=== PATIENT | female | born 1965 | race Caucasian/White ===

== ENCOUNTER → 2022-12-29 | Outpatient (CLI) | payer BC | END | disposition home or self-care (01) | LOC: LAB 14:45 → LAB SHORT 14:45 | DX: R30.0 Dysuria (principal) | CPT/HCPCS: 87077; 87086; 87186 ==

== ENCOUNTER 2023-12-17 06:27 | Day surgery (SDC) | payer BC ==
[~2023-12-17] VITALS: Ht 167 cm; Wt 83.5 kg
[2023-12-17] VITALS (9 sets, daily range): BP systolic 105–128; BP diastolic 60–72
[~2023-12-17 06:27] MED LIST: HYDCHL25 PO; LEVSOD100 PO; TIZA4 PO; ZOCOR20 MG PO
[2023-12-17] MEDS ORDERED: CeFAZolin Sodium 2,000 MG in NS 100 ML IV SCH (06:30)
[2023-12-17] MEDS ORDERED: Lactated Ringer's 1,000 ML IV SCH (06:30)
[2023-12-17] MEDS ORDERED: Bupivacaine 0.5% HCl 5 MG/ML 30MLVIAL ONE (07:01)
[2023-12-17] MEDS ORDERED: FentaNYL Citrate 50 MCG/ML 2 ML Injection ONE (07:20)
[2023-12-17] MEDS ORDERED: propofoL 20 ML IV ONE (07:20)
[2023-12-17] MEDS ORDERED: Ondansetron HCl 2 MG / ML 2ML Vial ONE (07:21)
[2023-12-17] MEDS ORDERED: Dexamethasone Sod Phos 10 MG/ML 1ML VIAL ONE (07:21)
[2023-12-17] MEDS ORDERED: Lidocaine HCl 2% 20 ML MDV ONE (07:21)
[2023-12-17] MEDS ORDERED: ZYRTEC10 M2 PO (07:24)
[2023-12-17] MEDS ORDERED: FLAX PO (07:24)
[2023-12-17] MEDS ORDERED: MAGNESIUM OXID500 MG PO (07:26)
[2023-12-17] MEDS ORDERED: Midazolam HCl 1MG / ML 2ML Vial IV PRN (07:40)
[2023-12-17] MEDS ORDERED: Lidocaine HCl 1% 20 ML MDV INFIL SCH (07:50)
[2023-12-17 07:55] LABS: BASOPHILS ABSOLUTE AUTO 0.03 K/mm3 (0.00-0.23); BASOPHILS PERCENT AUTO 1 % (0-2); EOSINOPHILS ABSOLUTE AUTO 0.17 K/mm3 (0.00-0.68); EOSINOPHILS PERCENT AUTO 3 % (0-6); Hematocrit 36.8 % (33.0-51.0); Hemoglobin 12.4 g/dL (11.5-16.0); IMMATURE GRAN ABSOLUTE AUTO 0.01 K/mm3 (0.00-0.10); IMMATURE GRAN PERCENT AUTO 0 % (0-1); LYMPHOCYTES ABSOLUTE AUTO 2.01 K/mm3 (0.84-5.20); LYMPHOCYTES PERCENT AUTO 38 % (21-46); MONOCYTES PERCENT AUTO 6 % (4-13); Mean Corpuscular HGB 29.5 pg (26.0-34.0); Mean Corpuscular HGB Conc 33.7 g/dL (31.5-36.5); Mean Corpuscular Volume 87 fL (80-100); Mean Platelet Volume 9.5 fL (9.1-12.4); NEUTROPHILS ABSOLUTE AUTO 2.78 K/mm3 (1.96-9.15); NEUTROPHILS PERCENT AUTO 52 % (41-73); Platelet Count 226 K/mm3 (150-400); RDW Coefficient Variation 12.6 % (11.7-14.2); RDW Standard Deviation 39.9 fL (35.1-46.3); Red Blood Cell Count 4.21 M/mm3 (3.80-5.20)
[2023-12-17] MEDS ORDERED: Ketorolac Tromethamine 30mg Vial ONE (07:55)
[2023-12-17] MEDS ORDERED: ePHEDrine Sulfate 50 MG/ML 1ML Injection ONE (08:10)
[2023-12-17 08:20] LABS: Albumin, Blood 3.9 g/dL (3.4-5.0); Albumin/Globulin Ratio 1.3 (0.8-1.8); Bilirubin, Total 0.3 mg/dL (0.1-1.0); Bun/Creatinine Ratio 27.5 (12.0-20.0); Calcium, Blood 8.8 mg/dL (8.5-10.1); Creatinine, Blood 0.84 mg/dL (0.40-1.00); Globulin, Blood 3.1 g/dL (2.2-4.0); Potassium, Blood 3.6 mmol/L (3.5-5.5)
[2023-12-17] MEDS ORDERED: HYDROcodone 5-APAP 325 TAB PO PRN (09:05)
== END 2023-12-17 10:05 | disposition home or self-care (01) ==
LOC: ORSCMMR 06:27 → ORD 08:00 → ORSCMMR 10:05
PROVIDERS: Anesthesiology; Surgery
PROC: 0HBU0ZX Excision of Left Breast, Open Approach, Diagnostic (ICD-10-PCS; principal; 2023-12-17 08:00)
DX: N63.42 Unspecified lump in left breast, subareolar (principal); I10 Essential (primary) hypertension; E03.9 Hypothyroidism, unspecified; E78.5 Hyperlipidemia, unspecified; Z79.899 Other long term (current) drug therapy; Z87.891 Personal history of nicotine dependence
CPT/HCPCS: 80053; 85025; 88307; J0690; J1100; J1885; J2250; J2405; J2704; J3010; J7120